=== PATIENT | male | born 1970 | race Caucasian/White ===

== ENCOUNTER 2017-11-19 19:33 | Emergency (ER) | payer OTHER ==
[~2017-11-19] VITALS: Ht 162.6 cm; Wt 80.0 kg
[~2017-11-19 19:33] MED LIST: LOVASTATIN20 MG PO; PERCOCET 5/31 TABLET PO; VALIUM5 MG PO
[2017-11-19] MEDS ORDERED: MEDROL DOSEPAK4 MG PO (22:48)
[2017-11-19] MEDS ORDERED: FLEXERIL10 MG PO (22:48)
[2017-11-19] MEDS ORDERED: PERCOCET 5/31 TABLET PO (22:49)
[2017-11-19 23:09] VITALS: BP 123/83
== END 2017-11-19 23:10 | disposition home or self-care (01) ==
LOC: EME 19:33
DX: M54.16 Radiculopathy, lumbar region (principal); G89.29 Other chronic pain
CPT/HCPCS: 72131; 99281; 99284; J3010